=== PATIENT | female | born 1950 | race Caucasian/White ===

== ENCOUNTER 2018-05-12 09:31 | Observation (INO) ==
[2018-05-12] MEDS ORDERED: PHENERGAN IV PRN (10:13)
[2018-05-12] MEDS ORDERED: NS 1,000 ML IV ONE (10:13)
[2018-05-12] MEDS ORDERED: SODIUM CHLORIDE 0.9% INJ PRN (10:13)
[2018-05-12] MEDS ORDERED: DESYREL PO PRN (10:13)
[2018-05-12] MEDS ORDERED: TYLENOL PO PRN (10:13)
[2018-05-12 11:10] LABS: BASO# 0.05 X1000 (0.0-0.2); BASO% 0.7 % (0.0-0.8); EOS# 0.24 X1000 (0.0-0.7); EOS% 3.2 % (0.0-10.0); HEMATOCRIT 43.4 % (37.0-47.0); HEMOGLOBIN 14.4 g/dL (12.0-16.0); LYMPH# 1.96 X1000 (1.2-3.4); LYMPH% 26.2 % (20.5-51.1); MCHC 33.2 g/dL (33-37); MCV 87.5 FL (81-99); MONO# 0.51 X1000 (0.11-0.59); MONO% 6.8 % (1.7-9.3); MPV 10.2 FL (7.4-10.4); NEUT# 4.71 X1000 (1.4-6.5); NEUT% 63.1 % (42.2-75.2); PLT 309 X1000 (130-400); RBC 4.96 XMIL (4.2-5.4); RDW 12.9 % (11.5-14.5); WBC 7.47 X1000 (4.8-10.8)
[2018-05-12] MEDS: LOVENOX SUBQ SCH (11:29)
[2018-05-12 11:43] LABS: ESTIMATED GFR > 60
[2018-05-12 12:12] LABS: AGAP 20; ALB/GLOB RATIO 1.3; ALBUMIN 4.3 g/dL (3.5-5.0); ALKALINE PHOSPHATASE 58 U/L (32-104); AMYLASE 42 U/L (20-200); BUN 14 mg/dL (8-22); CALCIUM 9.4 mg/dL (8.8-10.2); CHLORIDE 101 mmol/L (98-107); COSMO 271; CREATININE 0.7 mg/dL (0.5-0.9); GLUCOSE 66 mg/dL (70-104); GOT 15 U/L (10-30); GPT 7 U/L (10-36); LIPASE 16 U/L (13-60); POTASSIUM 4.1 mmol/L (3.5-5.1); SODIUM 136 mmol/L (136-145); TCO2 15 mmol/L (25-35); TOTAL BILIRUBIN 0.38 mg/dL (0.20-1.00); TOTAL PROTEIN 7.6 g/dL (6.3-8.3)
--- NOTE | 2018-05-12 13:47 | Diag Imaging Result Doc PS360 ---
EXAM: CT ABD/PELVIS W/IV CONT ONLY 05/12/2018 HISTORY: abdominal pain and diarrhea TECHNIQUE: This exam was performed using automated exposure control, adjustment of mA or kV according to patient size, and/or use of iterative reconstruction technique. COMMENT: There is atelectasis or fibrosis in the lateral costophrenic sulcus of the left lower lobe. There are no previous studies available for comparison. There are atherosclerotic calcifications present in the abdominal aorta and iliac arteries. The mesenteric and renal arteries are patent. There is no evidence of aneurysm. The pancreas is unremarkable. There is no evidence of stones or hydronephrosis in the kidneys. There is no evidence of mass in the kidneys and the adrenal glands and spleen are nonenlarged. The liver is unremarkable. There are no apparent gallstones. There is no evidence of bowel obstruction or significant adenopathy. There is no evidence of mucosal thickening in the colon or small bowel. Pelvis: The appendix is normal in appearance. The urinary bladder is unremarkable. There is no evidence of free fluid. There has been hysterectomy. There are spondylotic changes in the lumbar spine. There is no evidence of acute bony abnormality. IMPRESSION: Nonspecific abdomen. The possibility of mild enterocolitis cannot be excluded. Electronically signed by Franck Mathias 05/12/2018 1:45 PM
[2018-05-12] MEDS: NS 1,000 ML IV SCH ×2 (13:53→22:54)
[2018-05-12] MEDS: FLAGYL 500 MG/NS 500 MG/100 ML IVPB IV SCH ×3 (13:53→22:54)
[2018-05-12] MEDS: XANAX PO PRN ×2 (15:52→19:52)
[2018-05-12] MEDS ORDERED: ZOFRAN IV PRN (15:54)
[2018-05-12] MEDS ORDERED: NAMENDA PO SCH (21:00)
[2018-05-12] MEDS: COREG PO SCH (22:54)
[2018-05-13] MEDS: FLAGYL 500 MG/NS 500 MG/100 ML IVPB IV SCH ×3 (00:21→11:59)
[2018-05-13 06:23] LABS: URINE SOURCE CLEAN CATCH
[2018-05-13 06:26] LABS: BILIRUBIN URINE NEGATIVE (NEGATIVE); BLOOD URINE TRACE (NEGATIVE); COLOR STRAW; GLUCOSE URINE NEGATIVE (NEGATIVE); KETONE URINE 20 mg/dL (NEGATIVE); LEUKOCYTES URINE TRACE (NEGATIVE); NITRITE URINE NEGATIVE (NEGATIVE); PROTEIN URINE NEGATIVE (NEGATIVE); TURBIDITY URINE CLEAR (CLEAR); UROBILINOGEN URINE NORMAL (NORMAL)
[2018-05-13 06:27] LABS: UR EPITHELIAL CELLS <10 /HPF (<10); URINE BACTERIA NEGATIVE /HPF; URINE RBC <10 /HPF (<10); URINE WBC <10 /HPF (<10)
[2018-05-13] MEDS ORDERED: LEXAPRO PO SCH (09:00)
[2018-05-13] MEDS ORDERED: ASPIRIN PO SCH (09:00)
[2018-05-13] MEDS ORDERED: COZAAR PO SCH (09:00)
--- NOTE | 2018-05-13 11:57 | Diag Imaging Result Doc PS360 ---
EXAM: HIDA SCAN W/ EJECTION FRACTION HISTORY: ruq pain and light colored stools TECHNIQUE: Nuclear medicine HIDA scan COMPARISON: None. FINDINGS: 5.4 mCi Choletec administered. There is normal uptake within the liver. There is filling of the gallbladder by 20 minutes. Ensure was given to determine the gallbladder ejection fraction. This is calculated to be 65% at 60 minutes. This is above the normal range. IMPRESSION: Normal HIDA scan with a normal gallbladder ejection fraction. Electronically signed by Sudheer Diaz 05/13/2018 11:55 AM
[2018-05-13] MEDS: LOVENOX SUBQ SCH (12:24)
[2018-05-13] MEDS: XANAX PO PRN (12:25)
[2018-05-13] MEDS: COREG PO SCH (12:25)
[2018-05-13 13:11] VITALS: BP 138/60
--- NOTE | 2018-05-13 14:14 | PROGRESS NOTE ---
DATE: 05/13/2018 SUBJECTIVE: Ms. Irby has a history of hypertension. Her blood pressure is well controlled on a combination of Coreg and losartan. She denies any chest pain, palpitations, or anginal equivalents. She continues with mild abdominal pain but has had no further explosive watery diarrhea. She has still had some nausea. A HIDA scan with CCK was unremarkable. The ejection fraction was 69%. CT scan of the abdomen and pelvis demonstrated a mild enterocolitis. She has been having increasing reflux and sour brash but denies any dysphagia, melena or hematochezia. OBJECTIVE: Vital Signs: She is afebrile, pulse 75, respiratory rate 16, blood pressure 138/60. Cardiovascular: Regular rate and rhythm. Lungs: Clear. Abdomen: Mild epigastric and right upper quadrant tenderness to deep palpation. No rebound or guarding. ASSESSMENT AND PLAN: 1. Enterocolitis. Clinically, she is much better. I have asked her to continue to drink plenty of fluids at home and she will complete a 5 day course of Flagyl 500 mg t.i.d. as an outpatient. 2. Gastroesophageal reflux disease. I reviewed anti-reflux precautions with her and we will begin pantoprazole 40 mg daily. 3. Hypertension. Her blood pressure is stable. We will continue her current regimen of medications. cc: Jewel Traore MD
[2018-05-13] MEDS ORDERED: FLAGYL PO SCH (21:00)
[2018-05-14] MEDS ORDERED: PROTONIX PO SCH (07:00)
== END 2018-05-13 15:58 | disposition home or self-care (01) ==
LOC: DIRADM → 4N 09:31
PROVIDERS: ADMIT Internal Medicine; ATTEND Internal Medicine
CPT/HCPCS: 74177; 78227; 80053; 81001; 82150; 83690; 85025; 87088; A9270; A9537; J1650; J2405; J7030; Q9967; S0030